=== PATIENT | female | born 1965 | race Caucasian/White ===

== ENCOUNTER → 2016-09-03 | Outpatient (CLI) | payer BC ==
[~2016-09-03] MED LIST: ABILIFY2 MG PO; AMBIEN10 M1 PO; AMBIEN5 MG PO; AMOXICILLIN500 MG PO; ANAPROX DS550 MG PO; ATIVAN0.5 MG PO; ATIVAN1 MG PO; AUGMENTIN 875 M1 TAB PO; BACTRIM DS 8001 TA1 PO; BELSOMRA20 MG PO; CELEXA10 MG PO; CIPRO250 MG PO; CIPRO500 MG PO; COMPAZINE10 MG PO; CYCLOBENZAPRINE5 M3 PO; CYMBALTA30 MG PO; DIFLUCAN150 MG PO; FISH OIL1000 MG PO; FLONASE 0.05% 121 EA NAS; HUMIRA40 MG/0.1 SC; KEFLEX500 MG PO; KLONOPIN1 M1 PO; LOMOTIL 0.025 M1 TA1 PO; LOMOTIL 0.025 M1 TAB PO; MASON NATURAL1200 MG PO; MEDROL DOSEPAK4 MG PO; METFORMIN500 MG PO; MOTRIN800 MG PO; Motrin,Rufen800 MG PO; NORCO 325 MG-101 TAB PO; OMEPRAZOLE20 MG PO; OMNICEF300 MG PO; PENTASA500 MG PO; PHENERGAN W/DM120 ML PO; PREDNICOT10 MG PO; PRILOSEC20 MG PO; PYRIDIUM200 MG PO; Phenergan25 MG PO; TRAMADOL HCL50 MG PO; ULTRAM50 MG PO; VICODIN 500 MG-1 TAB PO; VICTOZA6 MG/ML SC; VISTARIL50 MG PO; VITAMIN D5000 I3 PO; ZOFRAN ODT4 MG SL; ZOFRAN4 MG PO; Zofran4 MG PO
[2016-09-03 08:48] LABS: ALBUMIN 3.6 gm/dl (3.1-4.5); ALKALINE PHOSPHATASE 81 U/L (45-117); BILIRUBIN, DIRECT < 0.1 mg/dL (0.0-0.2); BILIRUBIN, TOTAL 0.3 mg/dl (0.2-1.0); BUN 10 mg/dl (7-24); CHOLESTEROL 192 mg/dL (<200); EST GLOM FILT AFRICAN AMERICAN > 60 ml/min; GLUCOSE 97 mg/dL (65-99); HDL CHOLESTEROL 64 mg/dl (40-60); LDL CHOLESTEROL 90 mg/dL (9-159); SGOT/AST 13 IU/L (3-35); SGPT/ALT 20 U/L (12-78); TOTAL PROTEIN 7.4 gm/dL (6.4-8.2); TRIGLYCERIDES 192 mg/dl (<150); VLDL CHOLESTEROL 38 mg/dL (6-40)
[2016-09-03 09:01] LABS: HEMOGLOBIN A1c 5.8 % (4.8-5.6)
== END | disposition home or self-care (01) ==
LOC: LAB 07:37
PROVIDERS: Internal Medicine
DX: E78.4 Other hyperlipidemia (principal); E55.9 Vitamin D deficiency, unspecified; R73.02 Impaired glucose tolerance (oral); R00.2 Palpitations; Z79.1 Long term (current) use of non-steroidal anti-inflammatories (NSAID)

== ENCOUNTER → 2017-01-04 | Outpatient (CLI) | payer BC ==
[2017-01-04 11:10] LABS: ALBUMIN 3.8 gm/dl (3.1-4.5); ALKALINE PHOSPHATASE 107 U/L (45-117); BILIRUBIN, DIRECT < 0.1 mg/dL (0.0-0.2); BILIRUBIN, TOTAL 0.4 mg/dl (0.2-1.0); BUN 11 mg/dl (7-24); CARBON DIOXIDE 31 mmol/L (21-32); CHLORIDE 100 mmol/L (98-107); CHOLESTEROL 250 mg/dL (<200); EST GLOM FILT AFRICAN AMERICAN > 60 ml/min; FREE T4 1.01 ng/dl (0.76-1.46); GLUCOSE 111 mg/dL (65-99); HDL CHOLESTEROL 51 mg/dl (40-60); LDL CHOLESTEROL 149 mg/dL (9-159); POTASSIUM 4.4 mmol/L (3.5-5.1); SGOT/AST 14 IU/L (3-35); SGPT/ALT 23 U/L (12-78); SODIUM 135 mmol/L (136-145); TOTAL PROTEIN 7.9 gm/dL (6.4-8.2); TRIGLYCERIDES 251 mg/dl (<150); VLDL CHOLESTEROL 50 mg/dL (6-40)
== END | disposition home or self-care (01) ==
LOC: LAB 10:19
PROVIDERS: Internal Medicine
DX: G25.0 Essential tremor (principal); E55.9 Vitamin D deficiency, unspecified; E78.4 Other hyperlipidemia; R73.02 Impaired glucose tolerance (oral); R00.2 Palpitations

== ENCOUNTER → 2017-01-27 | Outpatient (CLI) | payer BC ==
[2017-01-30 01:04] LABS: ALTERNARIA ALTERNATA, IGE <0.10 kU/L (Class 0); AMERICAN ELM, IGE <0.10 kU/L (Class 0); ASPERGILLUS FUMIGATU, IGE <0.10 kU/L (Class 0); BERMUDA GRASS, IGE <0.10 kU/L (Class 0); BIRCH, COMMON SILVER IGE <0.10 kU/L (Class 0); CLADOSPORIUM HERBARU, IGE <0.10 kU/L (Class 0); CORN, IGE <0.10 kU/L (Class 0); D FARINAE MITE <0.10 kU/L (Class 0); D PTERONYSSINUS <0.10 kU/L (Class 0); DOG DANDER, IGE <0.10 kU/L (Class 0); IMMUNOGLOBULIN IgE 002170 68 IU/mL (0-100); MAPLE LEAF SYCAMORE, IGE <0.10 kU/L (Class 0); MAPLE/BOX ELDER, IGE 0.69 kU/L (Class II); MILK (COW), IGE <0.10 kU/L (Class 0); MOUSE URINE IGE <0.10 kU/L (Class 0); PEANUT, IGE <0.10 kU/L (Class 0); PENICILLIUM CHRYSOGENUM, IGE <0.10 kU/L (Class 0); ROUGH PIGWEED, IGE <0.10 kU/L (Class 0); SHEEP SORREL (DOCK), IGE <0.10 kU/L (Class 0); SHORT RAGWEED, IGE <0.10 kU/L (Class 0); SOYBEAN, IGE <0.10 kU/L (Class 0); TIMOTHY, IGE <0.10 kU/L (Class 0); WALNUT TREE, IGE <0.10 kU/L (Class 0); WHEAT, IGE <0.10 kU/L (Class 0); WHITE ASH, IGE <0.10 kU/L (Class 0); WHITE MULBERRY, IGE <0.10 kU/L (Class 0); WHITE OAK, IGE <0.10 kU/L (Class 0)
== END | disposition home or self-care (01) ==
LOC: LAB 15:58
PROVIDERS: Internal Medicine
DX: L50.0 Allergic urticaria (principal)

== ENCOUNTER 2017-04-09 18:01 | Emergency (ER) | payer BC ==
[~2017-04-09] VITALS: Ht 162.5 cm; Wt 90.7 kg
[2017-04-09 18:10] VITALS: BP 138/71
[2017-04-09] MEDS ORDERED: DIFLUCAN150 MG PO (18:18)
[2017-04-09] MEDS ORDERED: KEFLEX500 M1 PO (18:18)
[2017-04-09] MEDS ORDERED: Bactrim DS PO (18:18)
== END 2017-04-09 18:30 | disposition home or self-care (01) ==
LOC: ED 18:01
DX: N61.0 Mastitis without abscess (principal); R03.0 Elevated blood-pressure reading, without diagnosis of hypertension; Z90.710 Acquired absence of both cervix and uterus; Z90.49 Acquired absence of other specified parts of digestive tract; Z91.040 Latex allergy status; Z88.8 Allergy status to other drugs, medicaments and biological substances; Z79.899 Other long term (current) drug therapy

== ENCOUNTER → 2017-08-11 | Outpatient (CLI) | payer BC ==
[~2017-08-11] MED LIST changes: +Bactrim DS PO; +KEFLEX500 M1 PO
[2017-08-11 12:21] LABS: ALBUMIN 3.7 gm/dl (3.1-4.5); ALKALINE PHOSPHATASE 108 U/L (45-117); BILIRUBIN, DIRECT < 0.1 mg/dL (0.0-0.2); BUN 8 mg/dl (7-24); CHLORIDE 102 mmol/L (98-107); CHOLESTEROL 222 mg/dL (<200); CREATININE 0.79 mg/dL (0.55-1.02); HDL CHOLESTEROL 49 mg/dl (40-60); LDL CHOLESTEROL 121 mg/dL (9-159); POTASSIUM 4.3 mmol/L (3.5-5.1); SGOT/AST 15 IU/L (3-35); SGPT/ALT 28 U/L (12-78); SODIUM 138 mmol/L (136-145); TOTAL PROTEIN 7.8 gm/dL (6.4-8.2); TRIGLYCERIDES 258 mg/dl (<150); VLDL CHOLESTEROL 52 mg/dL (6-40)
[2017-08-14 15:06] LABS: CORN, IGE <0.10 kU/L (Class 0); EGG WHITE, IGE <0.10 kU/L (Class 0); MILK (COW), IGE <0.10 kU/L (Class 0); PEANUT, IGE <0.10 kU/L (Class 0); SOYBEAN, IGE <0.10 kU/L (Class 0); WHEAT, IGE <0.10 kU/L (Class 0)
== END | disposition home or self-care (01) ==
LOC: LAB 11:30
PROVIDERS: Internal Medicine
DX: E78.4 Other hyperlipidemia (principal); R73.02 Impaired glucose tolerance (oral); E55.9 Vitamin D deficiency, unspecified; R00.2 Palpitations; Z79.1 Long term (current) use of non-steroidal anti-inflammatories (NSAID)

== ENCOUNTER → 2018-03-15 | Outpatient (CLI) | payer BC ==
[2018-03-15 08:26] LABS: BASO % 0.6 % (0.0-1.0); EOS # 0.2 10*3/uL (0.0-0.4); EOS % 2.8 % (1.0-4.0); HEMOGLOBIN 13.8 g/dl (12.0-16.0); LYMPH # 2.5 10*3/uL (1.3-4.4); LYMPH % 35.3 % (27.0-41.0); MEAN CELL VOLUME 83.2 fl (81.0-99.0); MEAN CORPUSCULAR HGB 26.1 pg (27.0-31.0); MEAN CORPUSCULAR HGB CONC 31.4 g/dl (33.0-37.0); MEAN PLATELET VOLUME 10.2 fl (9.6-12.3); MONO # 0.4 10*3/uL (0.1-1.0); MONO % 4.9 % (3.0-9.0); PLATELET COUNT AUTOMATED 299 10*3/uL (130-400); RED BLOOD COUNT 5.29 10*6/uL (4.10-5.10); RED CELL DISTRI WIDTH 13.7 % (0-14.5); WHITE BLOOD COUNT 7.1 10*3/uL (4.8-10.8)
[2018-03-15 08:30] LABS: ALBUMIN 3.5 gm/dl (3.1-4.5); ALKALINE PHOSPHATASE 105 U/L (45-117); BUN 11 mg/dl (7-24); CHLORIDE 106 mmol/L (98-107); CREATININE 0.74 mg/dL (0.55-1.02); SGOT/AST 21 IU/L (3-35); SGPT/ALT 36 U/L (12-78); SODIUM 139 mmol/L (136-145); TOTAL PROTEIN 7.4 gm/dL (6.4-8.2)
== END | disposition home or self-care (01) ==
LOC: LAB 07:34
PROVIDERS: Physician Assistant Medical
DX: R10.84 Generalized abdominal pain (principal)

== ENCOUNTER → 2018-06-07 | Outpatient (CLI) | payer BC ==
[2018-06-07 08:24] LABS: CHOLESTEROL 200 mg/dL (<200); HDL CHOLESTEROL 43 mg/dl (40-60); LDL CHOLESTEROL 115 mg/dL (9-159); TRIGLYCERIDES 209 mg/dl (<150); VLDL CHOLESTEROL 42 mg/dL (6-40)
== END | disposition home or self-care (01) ==
LOC: LAB 07:35
PROVIDERS: Family Medicine
DX: Z13.220 Encounter for screening for lipoid disorders (principal); R73.01 Impaired fasting glucose; E78.49 Other hyperlipidemia

== ENCOUNTER → 2018-09-06 | Outpatient (CLI) | payer BC | END | disposition home or self-care (01) | LOC: LAB 16:08 | DX: E11.9 Type 2 diabetes mellitus without complications (principal); Z72.89 Other problems related to lifestyle ==

== ENCOUNTER → 2018-12-27 | Outpatient (CLI) | payer BC ==
[2018-12-27 11:17] LABS: BUN 10 mg/dl (7-24); CHLORIDE 105 mmol/L (98-107); CREATININE 0.76 mg/dL (0.55-1.02); POTASSIUM 4.1 mmol/L (3.5-5.1); SODIUM 136 mmol/L (136-145)
== END | disposition home or self-care (01) ==
LOC: LAB 09:49
PROVIDERS: Family Medicine
DX: E11.9 Type 2 diabetes mellitus without complications (principal); R60.0 Localized edema

== ENCOUNTER → 2019-04-01 | Outpatient (CLI) | payer BC ==
[2019-04-01 10:56] LABS: BASO % 0.6 % (0.0-1.0); EOS # 0.2 10*3/uL (0.0-0.4); EOS % 2.5 % (1.0-4.0); HEMATOCRIT 46.4 % (37.0-47.0); HEMOGLOBIN 14.6 g/dl (12.0-16.0); LYMPH # 2.7 10*3/uL (1.3-4.4); LYMPH % 38.4 % (27.0-41.0); MEAN CELL VOLUME 83.6 fl (81.0-99.0); MEAN CORPUSCULAR HGB 26.3 pg (27.0-31.0); MEAN CORPUSCULAR HGB CONC 31.5 g/dl (33.0-37.0); MONO # 0.4 10*3/uL (0.1-1.0); MONO % 5.8 % (3.0-9.0); NEUT # 3.7 10*3/uL (2.3-7.9); NEUT % 52.4 % (47.0-73.0); PLATELET COUNT AUTOMATED 317 10*3/uL (130-400); RED BLOOD COUNT 5.55 10*6/uL (4.10-5.10); RED CELL DISTRI WIDTH 14.2 % (0-14.5); WHITE BLOOD COUNT 7.1 10*3/uL (4.8-10.8)
[2019-04-01 11:25] LABS: ALBUMIN 3.7 gm/dl (3.1-4.5); ALKALINE PHOSPHATASE 109 U/L (45-117); BILIRUBIN, DIRECT < 0.1 mg/dL (0.0-0.2); SGOT/AST 13 IU/L (3-35); SGPT/ALT 30 U/L (12-78); TOTAL PROTEIN 8.2 gm/dL (6.4-8.2)
== END | disposition home or self-care (01) ==
LOC: LAB 10:11
PROVIDERS: Physician Assistant Medical
DX: F31.9 Bipolar disorder, unspecified (principal)

== ENCOUNTER → 2019-04-20 | Outpatient (CLI) | payer BC | END | disposition home or self-care (01) | LOC: CARD 14:51 | DX: R06.09 Other forms of dyspnea (principal); R60.0 Localized edema ==

== ENCOUNTER → 2020-03-08 | Outpatient (CLI) | payer BC | END | disposition home or self-care (01) | LOC: RAD 16:00 | PROVIDERS: ATTEND Nurse Practitioner Family | DX: M46.02 Spinal enthesopathy, cervical region (principal); M54.12 Radiculopathy, cervical region; M25.512 Pain in left shoulder ==

== ENCOUNTER → 2021-02-03 | Outpatient (CLI) | payer BC | END | disposition home or self-care (01) | LOC: LAB 13:25 | PROVIDERS: ATTEND Nurse Practitioner Family | DX: E11.9 Type 2 diabetes mellitus without complications (principal); R19.7 Diarrhea, unspecified; K50.918 Crohn's disease, unspecified, with other complication; R10.9 Unspecified abdominal pain; I10 Essential (primary) hypertension ==

== ENCOUNTER → 2021-02-18 | Outpatient (CLI) | payer BC | END | disposition home or self-care (01) | LOC: MAMMO 15:49 | PROVIDERS: ATTEND Nurse Practitioner Family | DX: Z12.31 Encounter for screening mammogram for malignant neoplasm of breast (principal); E11.9 Type 2 diabetes mellitus without complications; K50.918 Crohn's disease, unspecified, with other complication; R19.7 Diarrhea, unspecified; R10.9 Unspecified abdominal pain ==

== ENCOUNTER 2022-06-08 18:58 | Inpatient (IN) | payer BC ==
[~2022-06-08] VITALS: Ht 162.6 cm; Wt 98.0 kg
[2022-06-08 19:00] VITALS: BP 154/83
[2022-06-08 20:41] LABS: BASO # 0.1 10*3/uL (0.0-0.1); BASO % 0.5 % (0.0-1.0); EOS # 0.1 10*3/uL (0.0-0.4); EOS % 0.7 % (1.0-4.0); HEMATOCRIT 46.2 % (37.0-47.0); LYMPH % 20.3 % (27.0-41.0); MEAN CELL VOLUME 81.6 fl (81.0-99.0); MEAN CORPUSCULAR HGB CONC 31.8 g/dl (33.0-37.0); MONO # 0.4 10*3/uL (0.1-1.0); MONO % 4.4 % (3.0-9.0); NEUT # 7.3 10*3/uL (2.3-7.9); NEUT % 73.8 % (47.0-73.0); PLATELET COUNT AUTOMATED 293 10*3/uL (130-400); RED BLOOD COUNT 5.66 10*6/uL (4.10-5.10); RED CELL DISTRI WIDTH 13.9 % (0-14.5); WHITE BLOOD COUNT 9.9 10*3/uL (4.8-10.8)
[2022-06-08 20:56] LABS: ACT PARTIAL THROMBO TIME 25.1 SECONDS (20.0-32.1); CPK 54 U/L (34-171); MYOGLOBIN 29.3 ng/ml (13-71)
[2022-06-08 21:15] VITALS: BP 144/76
[2022-06-08 21:37] LABS: ALKALINE PHOSPHATASE 121 U/L (46-116); BUN 13 mg/dl (9-23); CHLORIDE 101 mmol/L (98-107); POTASSIUM 3.8 mmol/L (3.4-5.1); SGPT/ALT 56 U/L (10-49); TOTAL PROTEIN 7.7 gm/dL (6.0-8.0)
[2022-06-08 23:19] VITALS: BP 120/74
[2022-06-09 00:41] LABS: BILIRUBIN Negative (Negative); BLOOD Negative (Negative); CLARITY Clear (Clear); COLOR Yellow (Yellow); GLUCOSE Negative (Negative); KETONE 1+ (Negative); LEUKO ESTERASE 1+ (Negative); NITRITE Negative (Negative); UROBILINOGEN 0.2 E.U./dl (0.0-1.0)
[2022-06-09] MEDS ORDERED: FUROSEMIDE20 M1 PO (00:54)
[2022-06-09] MEDS ORDERED: DOXEPIN HCL25 MG PO (00:54)
[2022-06-09] MEDS ORDERED: FLUOXETINE HCL40 MG PO (00:55)
[2022-06-09] MEDS ORDERED: ATORVASTATIN CA10 M1 PO (00:56)
[2022-06-09] MEDS ORDERED: OZEMPIC1 MG/0.71 SQ (00:56)
[2022-06-09] MEDS ORDERED: ASPIRIN ADULT L81 M2 PO (00:57)
[2022-06-09 04:01] VITALS: BP 106/55
[2022-06-09 04:55] LABS: ALKALINE PHOSPHATASE 115 U/L (46-116); BUN 13 mg/dl (9-23); CHLORIDE 104 mmol/L (98-107); FREE T4 1.02 ng/dl (0.89-1.76); POTASSIUM 4.5 mmol/L (3.4-5.1); SGPT/ALT 48 U/L (10-49); THYROID STIM HORMONE (HS) 0.404 uIU/ml (0.550-4.780); TOTAL PROTEIN 7.6 gm/dL (6.0-8.0)
[2022-06-09 06:22] LABS: BASO % 0.3 % (0.0-1.0); HEMATOCRIT 45.9 % (37.0-47.0); LYMPH # 0.9 10*3/uL (1.3-4.4); LYMPH % 12.7 % (27.0-41.0); MEAN CORPUSCULAR HGB 26.2 pg (27.0-31.0); MEAN CORPUSCULAR HGB CONC 31.6 g/dl (33.0-37.0); MEAN PLATELET VOLUME 10.8 fl (9.6-12.3); MONO % 0.5 % (3.0-9.0); NEUT # 6.3 10*3/uL (2.3-7.9); NEUT % 86.2 % (47.0-73.0); PLATELET COUNT AUTOMATED 311 10*3/uL (130-400); RED BLOOD COUNT 5.53 10*6/uL (4.10-5.10); RED CELL DISTRI WIDTH 14.1 % (0-14.5); WHITE BLOOD COUNT 7.3 10*3/uL (4.8-10.8)
[2022-06-09 07:23] VITALS: BP 111/46
[2022-06-09 08:57] VITALS: BP 116/72
[2022-06-09 09:37] LABS: VITAMIN D, 25-HYDROXY 20.2 ng/mL (30-100)
[2022-06-09 11:50] VITALS: BP 105/56
[2022-06-09] MEDS ORDERED: Fioricet 325 MG1 TAB PO (13:31)
[2022-06-09] MEDS ORDERED: VITAMIN D325 MCG PO (13:31)
== END 2022-06-09 13:50 | disposition home or self-care (01) | DRG 103 ==
LOC: ED 18:58 → EDHOLD 23:44
PROVIDERS: Emergency Medicine; Family Medicine; ADMIT Emergency Medicine; ATTEND Emergency Medicine
DX: G43.909 Migraine, unspecified, not intractable, without status migrainosus (principal); E87.1 Hypo-osmolality and hyponatremia; E78.5 Hyperlipidemia, unspecified; E11.65 Type 2 diabetes mellitus with hyperglycemia; F41.1 Generalized anxiety disorder; F32.A Depression, unspecified; Z90.710 Acquired absence of both cervix and uterus; Z88.8 Allergy status to other drugs, medicaments and biological substances; Z91.040 Latex allergy status; Z90.49 Acquired absence of other specified parts of digestive tract; Z86.69 Personal history of other diseases of the nervous system and sense organs

== ENCOUNTER → 2022-09-01 | Outpatient (CLI) | payer BC ==
[~2022-09-01] MED LIST changes: +ASPIRIN ADULT L81 M2 PO; +ATORVASTATIN CA10 M1 PO; +DOXEPIN HCL25 MG PO; +FLUOXETINE HCL40 MG PO; +FUROSEMIDE20 M1 PO; +Fioricet 325 MG1 TAB PO; +OZEMPIC1 MG/0.71 SQ; +VITAMIN D325 MCG PO
[2022-09-01 17:36] LABS: BASO % 0.5 % (0.0-1.0); EOS # 0.2 10*3/uL (0.0-0.4); EOS % 2.4 % (1.0-4.0); HEMATOCRIT 44.4 % (37.0-47.0); LYMPH # 3.3 10*3/uL (1.3-4.4); LYMPH % 39.2 % (27.0-41.0); MEAN CELL VOLUME 84.1 fl (81.0-99.0); MEAN CORPUSCULAR HGB 26.3 pg (27.0-31.0); MEAN CORPUSCULAR HGB CONC 31.3 g/dl (33.0-37.0); MEAN PLATELET VOLUME 9.8 fl (9.6-12.3); MONO # 0.5 10*3/uL (0.1-1.0); MONO % 5.7 % (3.0-9.0); NEUT # 4.4 10*3/uL (2.3-7.9); PLATELET COUNT AUTOMATED 287 10*3/uL (130-400); RED BLOOD COUNT 5.28 10*6/uL (4.10-5.10); RED CELL DISTRI WIDTH 14.1 % (0-14.5); WHITE BLOOD COUNT 8.4 10*3/uL (4.8-10.8)
[2022-09-01 17:48] LABS: URINE CREATININE RANDOM 53.85 mg/dL
[2022-09-01 17:55] LABS: ALKALINE PHOSPHATASE 114 U/L (46-116); BUN 10 mg/dl (9-23); CHLORIDE 103 mmol/L (98-107); CHOLESTEROL 161 mg/dL (<200); LDL CHOLESTEROL 71 mg/dL (9-159); POTASSIUM 4.2 mmol/L (3.4-5.1); SGPT/ALT 33 U/L (10-49); THYROID STIM HORMONE (HS) 0.668 uIU/ml (0.550-4.780); TOTAL PROTEIN 7.3 gm/dL (6.0-8.0); TRIGLYCERIDES 225 mg/dl (<150)
== END | disposition home or self-care (01) ==
LOC: LAB 17:10
PROVIDERS: ATTEND Nurse Practitioner Family
DX: I10 Essential (primary) hypertension (principal); E11.9 Type 2 diabetes mellitus without complications; E78.2 Mixed hyperlipidemia; R32 Unspecified urinary incontinence; F41.9 Anxiety disorder, unspecified

== ENCOUNTER → 2023-02-15 | Outpatient (CLI) | payer BC | END | disposition home or self-care (01) | LOC: RAD 10:08 | PROVIDERS: ATTEND Nurse Practitioner Primary Care | DX: U07.1 COVID-19 (principal) ==

== ENCOUNTER 2023-03-15 20:32 | Emergency (ER) | payer BC ==
[~2023-03-15] VITALS: Ht 162.5 cm; Wt 92.1 kg
[2023-03-15 20:54] VITALS: BP 118/64
[2023-03-15] MEDS ORDERED: CEPHALEXIN500 M1 PO (22:26)
== END 2023-03-15 23:08 | disposition home or self-care (01) ==
LOC: ED 20:32
DX: S02.2XXA Fracture of nasal bones, initial encounter for closed fracture (principal); E11.9 Type 2 diabetes mellitus without complications; F41.9 Anxiety disorder, unspecified; F32.A Depression, unspecified; Z91.040 Latex allergy status; Z88.8 Allergy status to other drugs, medicaments and biological substances; Z90.49 Acquired absence of other specified parts of digestive tract; Z90.710 Acquired absence of both cervix and uterus; Z98.890 Other specified postprocedural states; W01.198A Fall on same level from slipping, tripping and stumbling with subsequent striking against other object, initial encounter; Y93.01 Activity, walking, marching and hiking; Y92.89 Other specified places as the place of occurrence of the external cause; Y99.8 Other external cause status

== ENCOUNTER 2023-05-10 15:42 | Emergency (ER) | payer BC ==
[~2023-05-10] VITALS: Ht 162.5 cm; Wt 95.3 kg
[~2023-05-10 15:42] MED LIST changes: +CEPHALEXIN500 M1 PO
[2023-05-10 19:22] VITALS: BP 110/71
[2023-05-10] MEDS ORDERED: BACLOFEN20 M1 PO (19:23)
[2023-05-10] MEDS ORDERED: NAPROSYN500 MG PO (19:23)
== END 2023-05-10 19:34 | disposition home or self-care (01) ==
LOC: ED 15:42
DX: M54.6 Pain in thoracic spine (principal); E11.9 Type 2 diabetes mellitus without complications; F41.9 Anxiety disorder, unspecified; F32.A Depression, unspecified; Z88.8 Allergy status to other drugs, medicaments and biological substances; Z91.040 Latex allergy status; Z90.49 Acquired absence of other specified parts of digestive tract; Z90.710 Acquired absence of both cervix and uterus; Z98.890 Other specified postprocedural states; F17.210 Nicotine dependence, cigarettes, uncomplicated

== ENCOUNTER 2023-06-22 12:07 | Emergency (ER) | payer BC ==
[~2023-06-22] VITALS: Ht 165.1 cm; Wt 90.7 kg
[~2023-06-22 12:07] MED LIST changes: +BACLOFEN20 M1 PO; +NAPROSYN500 MG PO
[2023-06-22 12:54] LABS: BASO % 0.3 % (0.0-1.0); EOS # 0.2 10*3/uL (0.0-0.4); EOS % 3.8 % (1.0-4.0); HEMATOCRIT 47.7 % (37.0-47.0); LYMPH # 1.5 10*3/uL (1.3-4.4); LYMPH % 36.3 % (27.0-41.0); MEAN CELL VOLUME 85.2 fl (81.0-99.0); MEAN CORPUSCULAR HGB 26.4 pg (27.0-31.0); MEAN PLATELET VOLUME 10.6 fl (9.6-12.3); MONO # 0.4 10*3/uL (0.1-1.0); MONO % 8.8 % (3.0-9.0); NEUT % 50.8 % (47.0-73.0); PLATELET COUNT AUTOMATED 232 10*3/uL (130-400); RED CELL DISTRI WIDTH 13.6 % (0-14.5)
[2023-06-22 13:14] LABS: ACT PARTIAL THROMBO TIME 29.3 SECONDS (20.0-32.1)
[2023-06-22 13:15] LABS: ALKALINE PHOSPHATASE 140 U/L (46-116); BUN 12 mg/dl (9-23); CHLORIDE 105 mmol/L (98-107); SGPT/ALT 58 U/L (5-49); TOTAL PROTEIN 7.5 gm/dL (6.0-8.0)
[2023-06-22 15:32] VITALS: BP 124/61
[2023-06-22] MEDS ORDERED: VIBRAMYCIN100 MG PO (15:48)
[2023-06-22] MEDS ORDERED: TAMIFLU 75MG CA75 MG PO (15:48)
[2023-06-22] MEDS ORDERED: PREDNISONE50 MG PO (15:48)
[2023-06-22] MEDS ORDERED: PROVENTIL HFA6.7 GM INH (15:48)
== END 2023-06-22 15:52 | disposition home or self-care (01) ==
LOC: ED 12:07
PROVIDERS: Family Medicine
DX: J11.1 Influenza due to unidentified influenza virus with other respiratory manifestations (principal); Z20.822 Contact with and (suspected) exposure to COVID-19; J44.1 Chronic obstructive pulmonary disease with (acute) exacerbation; E11.9 Type 2 diabetes mellitus without complications; F41.9 Anxiety disorder, unspecified; F32.A Depression, unspecified; R10.2 Pelvic and perineal pain; Z91.040 Latex allergy status; Z88.8 Allergy status to other drugs, medicaments and biological substances; Z90.49 Acquired absence of other specified parts of digestive tract; Z90.710 Acquired absence of both cervix and uterus; Z98.890 Other specified postprocedural states

== ENCOUNTER → 2023-08-11 | Outpatient (CLI) | payer BC ==
[~2023-08-11] MED LIST changes: +PREDNISONE50 MG PO; +PROVENTIL HFA6.7 GM INH; +TAMIFLU 75MG CA75 MG PO; +VIBRAMYCIN100 MG PO
[2023-08-11 08:40] LABS: BASO # 0.1 10*3/uL (0.0-0.1); BASO % 0.7 % (0.0-1.0); EOS # 0.1 10*3/uL (0.0-0.4); EOS % 1.7 % (1.0-4.0); LYMPH # 2.3 10*3/uL (1.3-4.4); MEAN CELL VOLUME 84.3 fl (81.0-99.0); MEAN CORPUSCULAR HGB 26.2 pg (27.0-31.0); MEAN CORPUSCULAR HGB CONC 31.1 g/dl (33.0-37.0); MEAN PLATELET VOLUME 10.9 fl (9.6-12.3); MONO # 0.4 10*3/uL (0.1-1.0); MONO % 5.5 % (3.0-9.0); NEUT # 4.3 10*3/uL (2.3-7.9); PLATELET COUNT AUTOMATED 261 10*3/uL (130-400); RED BLOOD COUNT 5.34 10*6/uL (4.10-5.10); RED CELL DISTRI WIDTH 13.1 % (0-14.5); WHITE BLOOD COUNT 7.1 10*3/uL (4.8-10.8)
[2023-08-11 09:03] LABS: ALKALINE PHOSPHATASE 110 U/L (46-116); BUN 11 mg/dl (9-23); CHLORIDE 105 mmol/L (98-107); CHOLESTEROL 123 mg/dL (<200); LDL CHOLESTEROL 49 mg/dL (9-159); POTASSIUM 4.4 mmol/L (3.4-5.1); SGPT/ALT 17 U/L (5-49); TOTAL PROTEIN 7.1 gm/dL (6.0-8.0); TRIGLYCERIDES 161 mg/dl (<150)
== END | disposition home or self-care (01) ==
LOC: LAB 08:07
PROVIDERS: ATTEND Nurse Practitioner Primary Care
DX: I10 Essential (primary) hypertension (principal); E78.2 Mixed hyperlipidemia

== ENCOUNTER → 2024-07-18 | Outpatient (CLI) | payer BC | LOC: MAMMO 16:17 | PROVIDERS: ATTEND Nurse Practitioner Primary Care | DX: Z12.31 Encounter for screening mammogram for malignant neoplasm of breast (principal); R92.323 Mammographic fibroglandular density, bilateral breasts; N64.89 Other specified disorders of breast; R92.1 Mammographic calcification found on diagnostic imaging of breast ==

== ENCOUNTER → 2024-11-28 | Outpatient (CLI) | payer BC ==
[2024-11-28 12:06] LABS: BASO # 0.0 10*3/uL (0.0-0.1); BASO % 0.6 % (0.0-1.0); EOS # 0.2 10*3/uL (0.0-0.4); EOS % 2.5 % (1.0-4.0); MEAN CELL VOLUME 83.0 fl (81.0-99.0); MEAN CORPUSCULAR HGB 25.9 pg (27.0-31.0); MEAN PLATELET VOLUME 10.4 fl (9.6-12.3); MONO # 0.4 10*3/uL (0.1-1.0); MONO % 5.1 % (3.0-9.0); NEUT # 3.9 10*3/uL (2.3-7.9); NEUT % 57.2 % (47.0-73.0); NUCLEATED RED BLOOD CELL 0.0 % (0.0-0.0); NUCLEATED RED BLOOD CELL 0.0 10*3/uL (0.0-0.0); PLATELET COUNT AUTOMATED 270 10*3/uL (130-400); RED CELL DISTRI WIDTH 13.6 % (0-14.5)
[2024-11-28 12:57] LABS: BUN 14 mg/dl (9-23); LDL CHOLESTEROL 56 mg/dL (9-159); SGPT/ALT 24 U/L (5-49)
== END | disposition home or self-care (01) ==
LOC: LAB 11:49
PROVIDERS: ATTEND Nurse Practitioner Primary Care
DX: E11.9 Type 2 diabetes mellitus without complications (principal); E78.2 Mixed hyperlipidemia